=== PATIENT | male | born 1980 | race African-American/Black ===

== ENCOUNTER → 2017-07-14 | Outpatient (CLI) | payer OTHER ==
--- NOTE | 2017-07-14 13:14 | DIAGNOSTIC IMAGING REPORT ---
MRI OF THE RIGHT TIBIA WITHOUT IV CONTRAST CLINICAL HISTORY: Right tibial and fibular pain. Frequent runner. COMPARISON STUDY: Radiographs of the right tibia and fibula dated 06/04/2017. TECHNIQUE: MRI of the right tibia and fibula is performed utilizing various T1 and T2-weighted sequences in the axial, sagittal, and coronal planes. IV contrast was not administered for this examination. FINDINGS: There is subtle marrow edema suggested within the medial aspect of the distal tibial shaft, best seen on axial STIR sequence image 27. There is no corresponding drop in signal on the T1-weighted sequence, and this may represent a mild stress reaction. There is no MRI evidence of fracture. There is no periosteal edema. Normal marrow signal intensity is otherwise preserved throughout the right tibia and fibula. The knee and ankle joints are grossly maintained. The surrounding musculature is normal in bulk and signal intensity. The overlying soft tissues are within normal limits. The visualized portions of the Achilles tendon are normal in morphology and signal intensity. IMPRESSION: Question faint marrow edema within the medial aspect of the distal tibial shaft. This may represent a mild stress reaction. There is no MRI evidence of fracture. Dictated: 07/14/2017 12:50 PM Transcribed: 07/14/2017 1:13 PM Joan Electronically signed by: Chris Glaser M.D. 07/14/2017 1:28 PM Dictated Date/Time: 07/14/2017 12:50 PM
== END | disposition home or self-care (01) ==
LOC: C.MRI 10:47
PROVIDERS: ATTEND Family Medicine
DX: M89.8X6 Other specified disorders of bone, lower leg (principal)